=== PATIENT | male | born 1965 | race Caucasian/White ===

== ENCOUNTER 2022-12-24 15:06 | Emergency (ER) | payer SELFPAY ==
[~2022-12-24] VITALS: Ht 170.2 cm; Wt 75.0 kg
[2022-12-24 15:15] VITALS: BP 169/95
[2022-12-24 18:58] LABS: BASOPHILS % 0.5 % (0.0-2.0); HEMATOCRIT. 41.7 % (42.0-52.0); HEMOGLOBIN. 13.7 g/dL (14.0-18.0); LYMPHOCYTES % 19.9 % (20.0-50.0); MEAN CORPUSCULAR HEMOGLOBIN 28.1 pg (28.0-32.0); MEAN CORPUSCULAR VOLUME 85.4 fL (80.0-94.0); MEAN PLATELET VOLUME 7.9 fl (7.4-10.4); MONOCYTES % 5.2 % (2.0-8.0); NEUTROPHILS % 72.4 % (40.0-76.0); PLATELET 386 x1000/uL (130-400); RED BLOOD CELL COUNT 4.89 mill/uL (4.7-6.1); RED CELL DISTRIBUTION WIDTH 16.9 % (11.6-14.6)
[2022-12-24 19:07] LABS: CHLORIDE 106 mEq/L (98-107)
[2022-12-24 19:18] LABS: ETHANOL BLOOD < 10 mg/dL
[2022-12-25] MEDS ORDERED: ACET-2708 MT (00:54)
== END 2022-12-25 01:05 | disposition home or self-care (01) ==
LOC: ER 15:06
DX: S82.292A Other fracture of shaft of left tibia, initial encounter for closed fracture (principal); S82.141A Displaced bicondylar fracture of right tibia, initial encounter for closed fracture; S82.092A Other fracture of left patella, initial encounter for closed fracture; M79.672 Pain in left foot; M79.671 Pain in right foot; D72.829 Elevated white blood cell count, unspecified; I69.922 Dysarthria following unspecified cerebrovascular disease; L03.019 Cellulitis of unspecified finger; M17.12 Unilateral primary osteoarthritis, left knee; V49.69XA Unspecified car occupant injured in collision with other motor vehicles in traffic accident, initial encounter; Z96.698 Presence of other orthopedic joint implants; Y93.89 Activity, other specified; Y92.488 Other paved roadways as the place of occurrence of the external cause
CPT/HCPCS: 36415; 73560; 73590; 73600; 73620; 80053; 80307; 80320; 80329; 85025; 99284; G0480

== ENCOUNTER 2022-12-24 20:56 | Emergency (ER) | payer SELFPAY ==
[2022-12-25] MEDS ORDERED: ACET-2708 MT (00:54)
== END 2022-12-24 21:25 | disposition home or self-care (01) ==
LOC: ER 21:12
DX: Z53.21 Procedure and treatment not carried out due to patient leaving prior to being seen by health care provider (principal)